=== PATIENT | female | born 1950 | race Caucasian/White ===

== ENCOUNTER → 2017-07-18 | Outpatient (CLI) | payer OTHER, MEDICAID ==
--- NOTE | 2017-07-19 14:45 | CT ---
HISTORY: Neck pain and spinal canal stenosis. Study: CT cervical spine without contrast Comparison: None. Technique: Multiple axial images of the cervical spine were obtained from the skull base to the thora cic inlet without administration of IV contrast. Sagittal and coronal reformats were performed and r eviewed. Dose reduction techniques including Automated Exposure Control (AEC) and adjustment of mA an d kV were utilized. Findings: Diffuse osteopenia. No acute fracture or listhesis. Grade 3 anterior listhesis of C6 on C7 with assoc iated severe disc space narrowing. There is associated anterior wedging of the C7 vertebral body. Thi s appears chronic. Multilevel moderate to severe degenerative changes of the cervical spine. Multilev el bilateral moderate to severe neural foraminal narrowing. No significant spinal canal stenosis. Sev ere vascular calcifications. Biapical scarring of the lung apices. IMPRESSION: Chronic findings as above. If patient has radicular symptoms, MRI cervical spine is more sensitive. Reported By:
== END ==
LOC: RAD 15:06
PROVIDERS: ATTEND Neurological Surgery
DX: M48.02 Spinal stenosis, cervical region (principal); J44.9 Chronic obstructive pulmonary disease, unspecified; R05 Cough; R07.89 Other chest pain; Z95.9 Presence of cardiac and vascular implant and graft, unspecified; Z87.828 Personal history of other (healed) physical injury and trauma; K21.9 Gastro-esophageal reflux disease without esophagitis; M13.88 Other specified arthritis, other site
CPT/HCPCS: 72125